=== PATIENT | female | born 1975 | race Two or more races ===

== ENCOUNTER 2018-04-21 17:36 | Emergency (ER) | payer SELFPAY ==
--- NOTE | 2018-04-21 19:03 | RADIOLOGY REPORT (SQ) ---
EXAM DESCRIPTION: FINGER LEFT COMPLETED DATE/TIME: 04/21/2018 6:55 pm REASON FOR STUDY: left thumb pain, bruising COMPARISON: None. NUMBER OF VIEWS: Three views. TECHNIQUE: AP, lateral, and oblique images acquired of the left thumb. LIMITATIONS: None. FINDINGS: MINERALIZATION: Normal. BONES: No acute fracture or dislocation. No worrisome bone lesions. SOFT TISSUES: No soft tissue swelling. No foreign body. OTHER: No other significant finding. IMPRESSION: NO RADIOGRAPHIC EVIDENCE OF ACUTE INJURY. COMMENT: SITE OF TRAUMA/COMPLAINT MARKED/STAMP COMPLETED: No TECHNICAL DOCUMENTATION: JOB ID: [id number] [employer]- All Rights Reserved Reading location - IP/workstation name: [email or web address]
--- NOTE | 2018-04-21 19:33 | ER Document Report ---
HPI - HPI Patient complains to provider of: Bone pain, finger swelling Onset/Duration: Persistent Quality of pain: Achy Pain Level: 4 Context: Patient presents complaining of a 15 day history of generalized bone pain throughout her body. Patient has had some episodes of hot and cold chills. Patient denies any nausea or vomiting. Patient denies any cough. Patient noticed her thumb was swelling today and she had some numbness in the thumb. Patient with a bruise on the palmar surface of her thumb which she does not know how it occurred. Patient states she has had body pain symptoms in the past when her vitamin D level was low. Patient has been taking multivitamins. Associated Symptoms: Chills, Other - Left thumb swelling. denies: Chest pain, Nonproductive cough, Productive cough Exacerbated by: Denies Relieved by: Denies Similar symptoms previously: Yes Recently seen / treated by doctor: No - ROS ROS below otherwise negative: Yes Systems Reviewed and Negative: Yes All other systems reviewed and negative - CONSTITUTIONAL Constitutional: REPORTS: Chills. DENIES: Fever - EENT EENT: DENIES: Sore Throat, Ear Pain, Eye problems - NEURO Neurology: REPORTS: Dizzinesss / Vertigo. DENIES: Headache, Weakness, Vision blurred - CARDIOVASCULAR Cardiovascular: DENIES: Chest pain - RESPIRATORY Respiratory: DENIES: Trouble Breathing, Coughing - GASTROINTESTINAL Gastrointestinal: DENIES: Abdominal Pain, Patient vomiting, Black / Bloody Stools - URINARY Urinary: DENIES: Dysuria, Urgency, Frequency - REPRODUCTIVE Reproductive: DENIES: :, Postmenopausal - MUSCULOSKELETAL Musculoskeletal: REPORTS: Extremity pain - Generalized body pain - DERM Skin Color: Ecchymosis Skin Problems: None <SUMMER MALDONADO - Last Filed: 04/21/18 21:08> Past Medical History - General Information source: Patient - Social History Smoking Status: Never Smoker Chew tobacco use (# tins/day): No Frequency of alcohol use: None Drug Abuse: None Occupation: None Lives with: Family Family History: Reviewed & Not Pertinent Patient has suicidal ideation: No Patient has homicidal ideation: No - Medical History Medical History: Negative Renal/ Medical History: Denies: Hx Peritoneal Dialysis Past Surgical History: Reports: Hx Hysterectomy, Hx Tubal Ligation <SUMMER MALDONADO - Last Filed: 04/21/18 21:08> Vertical Provider Document - CONSTITUTIONAL Agree With Documented VS: Yes Exam Limitations: No Limitations General Appearance: WD/WN, No Apparent Distress - INFECTION CONTROL TRAVEL OUTSIDE OF THE [place] IN LAST 30 DAYS: No - HEENT HEENT: Atraumatic, Normal ENT Exam, Normocephalic - NECK Neck: Normal Inspection, Supple - RESPIRATORY Respiratory: Breath Sounds Normal, No Respiratory Distress - CARDIOVASCULAR Cardiovascular: Regular Rate, Regular Rhythm Pulses: Normal: Radial - BACK Back: Normal Inspection - MUSCULOSKELETAL/EXTREMETIES Musculoskeletal/Extremeties: MAEW, FROM, Tender - Mild tenderness to left thumb involving DIP joint, patient with small area of ecchymosis to palmar surface overlying DIP joint of left thumb., Eccymosis - NEURO Level of Consciousness: Awake, Alert, Appropriate Motor/Sensory: No Motor Deficit - DERM Integumentary: Warm, Dry <SUMMER MALDONADO - Last Filed: 04/21/18 21:08> Course - Re-evaluation Re-evalutation: 04/21/18 20:[address] Davila regarding patient presentation and diagnostic evaluation. Recommends adding on additional labs, does not advise transfusing patient at this time. Recommends likely admission for further evaluation of anemia as well as to trend her blood counts to be sure that she is not actively bleeding at this time. 04/21/18 20:59 Upon further questioning, patient does acknowledge that she has heavy menstrual cycles in which she bleeds for about 12 days and passes clots each month. Patient states she has been having heavy menstrual bleeding for the past 3 years. Patient denies any chest pain or shortness of breath. Patient does have intermittent episodes of dizziness. 04/21/18 21:08 Bedside report and handoff given to Israel HAYNES - Vital Signs Vital signs: Temp Pulse Resp BP Pulse Ox 98.2 F 88 16 129/75 H 98 04/21/18 17:48 04/21/18 17:48 04/21/18 17:48 04/21/18 17:48 04/21/18 17:48 - Laboratory Result Diagrams: 04/21/18 19:20 04/21/18 19:20 <SUMMER MALDONADO - Last Filed: 04/21/18 21:08> - Re-evaluation Re-evalutation: Transvaginal ultrasound reveals a 4.4 cm heterogeneous mass in the fundus of the uterus, likely a fibroid according to the ultrasound report. Patient is not actively bleeding. Orthostatic vital signs are within normal limits. I discussed this patient's case with Dr. Menendez who agrees that the patient is okay for discharge this time with close follow-up with [employer]. Will place patient on ferrous sulfate 325 mg 3 times daily. Patient given strict ED return precautions. - Vital Signs Vital signs: Temp Pulse Resp BP Pulse Ox 99.0 F 79 16 115/72 100 04/21/18 22:23 04/21/18 22:28 04/21/18 22:23 04/21/18 22:28 04/21/18 22:23 - Laboratory Result Diagrams: 04/21/18 19:20 04/21/18 19:20 Laboratory results interpreted by me: 04/21/18 19:20 Hgb 7.8 L Hct 25.7 L MCV 61 L MCH 18.6 L MCHC 30.3 L RDW 19.6 H <ISRAEL ZHANG - Last Filed: 04/22/18 04:54> Discharge <SUMMER MALDONADO - Last Filed: 04/21/18 21:08> <ISRAEL ZHANG - Last Filed: 04/22/18 04:54> - Discharge Clinical Impression: Anemia Qualifiers: Anemia type: unspecified type Qualified Code(s): D64.9 - Anemia, unspecified Condition: Stable Disposition: HOME, SELF-CARE Additional Instructions: Anemia You have been found to have a significant anemia (a lower than normal amount of red blood cells). Anemia can be due to iron deficiency, vitamin deficiency, abnormal bleeding, or internal diseases. Usually, further tests are necessary to find the exact cause of the anemia. The most common cause of anemia is iron deficiency, often brought on by blood loss. This can be treated with iron supplements. If this appears to be the most likely cause, iron tablets may be prescribed even before all tests are complete. Contact the doctor at once if you note black or tarry-looking stools, bloody vomiting, shortness of breath, chest pain, or faintness. Please take the iron as prescribed. You need to follow-up with a cable layer call Tuesday morning for an appointment. I am enclosing a copy of your labs as well as your ultrasound report, the ultrasound report shows a uterine mass which needs further evaluation as it could be a benign fibroid or could be cancerous. Please take these to the cable layer with you. Return to the emergency department if you develop worsening symptoms, you start bleeding vaginally soaking through more than 1 pad per hour, you pass out or any other symptom that is concerning to you. Prescriptions: Ferrous Sulfate 325 mg PO TID #60 tablet [facility] [NO LOCAL MD] - Follow up as needed [facility] [Provider Group] - Follow up as needed BRENDA ATKINSON MD [EMERITUS] - Follow up as needed KAELYN BULL MD [EMERITUS] - Follow up as needed
[2018-04-21 19:46] LABS: ABSOLUTE BASOPHILS # (AUTO) 0.1 10^3/uL (0.0-0.2); ABSOLUTE EOSINOPHILS # (AUTO) 0.1 10^3/uL (0.0-0.6); ABSOLUTE LYMPHOCYTES (AUTO) 1.9 10^3/uL (0.5-4.7); ABSOLUTE MONOCYTES (AUTO) 0.6 10^3/uL (0.1-1.4); ABSOLUTE NEUT (AUTO) 4.7 10^3/uL (1.7-8.2); BASOPHILS % (AUTO) 0.8 % (0-2); EOSINOPHILS % (AUTO) 1.9 % (0-6); HEMATOCRIT 25.7 % (36.0-47.0); LYMPHOCYTES % (AUTO) 26.1 % (13-45); MEAN CORPUSCULAR HEMOGLOBIN 18.6 pg (27.0-33.4); MEAN CORPUSCULAR HGB CONC 30.3 g/dL (32.0-36.0); MEAN CORPUSCULAR VOLUME 61 fl (80-97); MONOCYTES % (AUTO) 7.9 % (3-13); PLATELET COUNT 182 10^3/uL (150-450); RED CELL DISTRIBUTION WIDTH 19.6 % (11.5-14.0); SEGMENTED NEUTROPHILS % (AUTO) 63.3 % (42-78); TOTAL CELLS COUNTED % (AUTO) 100 %; WHITE BLOOD COUNT 7.4 10^3/uL (4.0-10.5)
[2018-04-21 20:06] LABS: ANION GAP 13 (5-19); ANISOCYTOSIS 2+; BLOOD UREA NITROGEN 16 mg/dL (7-20); CARBON DIOXIDE 23 mmol/L (22-30); CHLORIDE 104 mmol/L (98-107); GLUCOSE 89 mg/dL (75-110); HYPOCHROMASIA 2+; OVALOCYTES SLIGHT; PLATELET COMMENT ADEQUATE; POIKILOCYTOSIS SLIGHT; POTASSIUM 4.8 mmol/L (3.6-5.0); SODIUM 139.6 mmol/L (137-145); TOXIC GRANULATION SLIGHT
[2018-04-21 20:09] LABS: HEMOGLOBIN 7.8 g/dL (12.0-15.5)
[2018-04-21 20:42] LABS: PROTHROMBIN TIME 13.7 SEC (11.4-15.4)
[2018-04-21 20:43] LABS: PARTIAL THROMBOPLASTIN TIME 30.3 SEC (23.5-35.8)
[2018-04-21 21:01] LABS: ALANINE AMINOTRANSFERASE 23 U/L (9-52); ALKALINE PHOSPHATASE 68 U/L (38-126); ASPARTATE AMINO TRANSFERASE 18 U/L (14-36); BILIRUBIN,DIRECT 0.2 mg/dL (0.0-0.4); BILIRUBIN,TOTAL 0.3 mg/dL (0.2-1.3); TOTAL PROTEIN 6.8 g/dL (6.3-8.2)
--- NOTE | 2018-04-21 22:04 | RADIOLOGY REPORT (SQ) ---
EXAM DESCRIPTION: U/S NON OB PEL TV W/DOPPLER COMPLETED DATE/TIME: 04/21/2018 9:54 pm REASON FOR STUDY: anemia, hx heavy menses COMPARISON: None. TECHNIQUE: Dynamic and static grayscale images acquired of the pelvis via transvaginal approach and recorded on PACS. Additional selected color Doppler and spectral images recorded. LIMITATIONS: None. FINDINGS: UTERUS: Heterogenous mass in the fundus measuring 3.7 x 4.3 x 4.4 cm. ENDOMETRIAL STRIPE: No focal or generalized thickening. No masses. CERVIX: No nabothian cysts. RIGHT OVARY AND DOPPLER: Ovary not visualized. LEFT OVARY AND DOPPLER: Ovary not visualized. FREE FLUID: Small amount of free fluid in the posterior cul-de-sac. OTHER: No other significant finding. MEASUREMENTS: UTERUS: 6.2 x 7.4 x 11 cm. ENDOMETRIAL STRIPE: 8 mm. RIGHT OVARY: Not visualized. LEFT OVARY: Not visualized. IMPRESSION: 4.4 CM HETEROGENOUS MASS IN THE FUNDUS OF THE UTERUS, LIKELY A FIBROID. OVARIES NOT VIS UALIZED. TECHNICAL DOCUMENTATION: JOB ID: [id number]- All Rights Reserved Rev-01/13 Reading location - IP/workstation name: [email or web address]
[2018-04-21 23:37] VITALS: BP 121/70
[2018-04-24 14:20] LABS: PATH REVIEW PATHOLOGIST REVIEWED
== END 2018-04-21 23:37 | disposition home or self-care (01) ==
LOC: ER 17:36
DX: D64.9 Anemia, unspecified (principal); S60.012A Contusion of left thumb without damage to nail, initial encounter; X58.XXXA Exposure to other specified factors, initial encounter; M89.8X0 Other specified disorders of bone, multiple sites; N85.9 Noninflammatory disorder of uterus, unspecified; R68.83 Chills (without fever); R20.0 Anesthesia of skin; R42 Dizziness and giddiness
CPT/HCPCS: 36415; 76830; 80048; 80076; 82272; 84703; 85025; 85610; 85730; 86850; 86900; 86901; 93976; 99284

== ENCOUNTER 2018-06-28 13:02 | Emergency (ER) | payer OTHER ==
--- NOTE | 2018-06-28 13:54 | ER Document Report ---
ED Medical Screen (RME) - General Chief Complaint: Vaginal Bleeding Stated Complaint: VAGINAL BLEEDING Time Seen by Provider: 06/28/18 13:49 Notes: 43 years old female with chronic history of vaginal bleeding has been bleeding for about 11 days now and feeling dizzy and lightheaded therefore present to the ED. No abdominal pain. Conjunctivae appears normal TRAVEL OUTSIDE OF THE [place]. IN LAST 30 DAYS: No - Related Data Allergies/Adverse Reactions: aspirin Allergy (Verified 06/28/18 13:03) Penicillins Allergy (Verified 06/28/18 13:03) Past Medical History Renal/ Medical History: Denies: Hx Peritoneal Dialysis Past Surgical History: Reports: Hx Hysterectomy, Hx Tubal Ligation Physical Exam - Vital signs Vitals: Temp Pulse Resp BP Pulse Ox 98.4 F 68 16 125/77 100 06/28/18 13:30 06/28/18 13:30 06/28/18 13:30 06/28/18 13:30 06/28/18 13:30 Course - Vital Signs Vital signs: Temp Pulse Resp BP Pulse Ox 98.4 F 68 16 125/77 100 06/28/18 13:30 06/28/18 13:30 06/28/18 13:30 06/28/18 13:30 06/28/18 13:30
--- NOTE | 2018-06-28 14:36 | ER Document Report ---
ED GI/ - General Chief Complaint: Vaginal Bleeding Stated Complaint: VAGINAL BLEEDING Time Seen by Provider: 06/28/18 13:49 Mode of Arrival: Ambulatory Information source: Patient Notes: 43-year-old female presented to ED for complaint of heavy vaginal bleeding during her period for the last several months. She states this month her period is been going on for 10 days and is getting progressively heavier and she is having cramps in the pelvic area. She states she has been feeling dizzy and lightheaded today so she came to the emergency room. Patient is alert and oriented respirations regular and unlabored speaking in full sentences. Her daughter is present as the patient does speak Romansh. TRAVEL OUTSIDE OF THE [place] IN LAST 30 DAYS: No - HPI Patient complains to provider of: Pelvic pain, Vaginal bleeding, Other - Back pain Onset: Other - 10 days Timing/Duration: Intermittent - States her periods have been very heavy for the last several months getting progressively worse Quality of pain: Cramping Severity at maximum: Moderate Severity in ED: Moderate Pain Level: 3 Location: Low back, Pelvis Vaginal bleeding (Compared to normal period): Heavier Associated symptoms: Dizzy, Lightheaded Exacerbated by: Denies Relieved by: Denies Similar symptoms previously: Yes Recently seen / treated by doctor: No - Related Data Allergies/Adverse Reactions: aspirin Allergy (Verified 06/28/18 13:03) Penicillins Allergy (Verified 06/28/18 13:03) Past Medical History - General Information source: Patient - Social History Smoking Status: Never Smoker Cigarette use (# per day): No Chew tobacco use (# tins/day): No Smoking Education Provided: No Frequency of alcohol use: None Drug Abuse: None Lives with: Family Family History: Reviewed & Not Pertinent Patient has suicidal ideation: No Patient has homicidal ideation: No - Medical History Medical History: Other - Anemia - Past Medical History Cardiac Medical History: Reports: None Pulmonary Medical History: Reports: None EENT Medical History: Reports: None Endocrine Medical History: Reports: None Renal/ Medical History: Reports: None Malignancy Medical History: Reports: None GI Medical History: Reports: None Musculoskeletal Medical History: Reports None Skin Medical History: Reports None Psychiatric Medical History: Reports: None Traumatic Medical History: Reports: None Infectious Medical History: Reports: None Past Surgical History: Reports: Hx Tubal Ligation Review of Systems - Review of Systems Constitutional: No symptoms reported EENT: No symptoms reported Cardiovascular: No symptoms reported, Dizziness, Lightheaded Respiratory: No symptoms reported Gastrointestinal: No symptoms reported Genitourinary: No symptoms reported Female Genitourinary: Heavy/abnormal periods - Pelvic pain, Vaginal bleeding, Other Musculoskeletal: No symptoms reported Skin: No symptoms reported Hematologic/Lymphatic: No symptoms reported Neurological/Psychological: No symptoms reported -: Yes All other systems reviewed and negative Physical Exam - Vital signs Vitals: Temp Pulse Resp BP Pulse Ox 98.4 F 68 16 125/77 100 06/28/18 13:30 06/28/18 13:30 06/28/18 13:30 06/28/18 13:30 06/28/18 13:30 Interpretation: Normal - General General appearance: Appears well, Alert - HEENT Head: Normocephalic, Atraumatic Eyes: Normal Pupils: PERRL - Respiratory Respiratory status: No respiratory distress Chest status: Nontender Breath sounds: Normal Chest palpation: Normal - Cardiovascular Rhythm: Regular Heart sounds: Normal auscultation Murmur: No - Abdominal Inspection: Normal Distension: No distension Bowel sounds: Normal Tenderness: Nontender Organomegaly: No organomegaly - Genitourinary External exam: Normal Vaginal bleeding: Moderate Bimanuel exam: Normal - Back Back: Normal, Nontender - Extremities General upper extremity: Normal inspection, Nontender, Normal color, Normal ROM , Normal temperature General lower extremity: Normal inspection, Nontender, Normal color, Normal ROM , Normal temperature, Normal weight bearing. No: Mitesh's sign - Neurological Neuro grossly intact: Yes Cognition: Normal Orientation: AAOx4 [place] Coma Scale Eye Opening: Spontaneous Meghana Coma Scale Verbal: Oriented [place] Coma Scale Motor: Obeys Commands [place] Coma Scale Total: 15 Speech: Normal Motor strength normal: LUE, RUE, LLE, RLE Sensory: Normal - Psychological Associated symptoms: Normal affect, Normal mood - Skin Skin Temperature: Warm Skin Moisture: Dry Skin Color: Normal Course - Vital Signs Vital signs: Temp Pulse Resp BP Pulse Ox 97.8 F 63 16 123/76 100 06/28/18 17:55 06/28/18 17:55 06/28/18 17:55 06/28/18 17:55 06/28/18 17:55 - Laboratory Result Diagrams: 06/28/18 15:00 Laboratory results interpreted by me: 06/28/18 15:00 RDW 21.4 H - Diagnostic Test Radiology reviewed: Image reviewed, Reports reviewed - Consults Dr Meyer Time consulted: 16:58 Reason for consultation: 06/28/18 20:31 Normal vaginal bleeding Consulted provider: follow-up in office Discharge - Discharge Clinical Impression: Painful heavy vaginal bleeding Uterine fibroid Qualifiers: Uterine leiomyoma location: unspecified location Qualified Code(s): D25.9 - Leiomyoma of uterus, unspecified Ovarian cyst Qualifiers: Laterality: left Qualified Code(s): N83.202 - Unspecified ovarian cyst, left side Condition: Stable Disposition: HOME, SELF-CARE Additional Instructions: VAGINAL BLEEDING: You are having an episode of abnormal bleeding. Causes of abnormal vaginal bleeding can include miscarriage or tubal , tumors such as cancer or benign fibroids, medication effects, or hormone imbalance. Testing can eliminate unsuspected , tumors, or infection as a cause. "Dysfunctional uterine bleeding" is due to hormone imbalance, and is especially common at times when the normal cycle is disturbed -- whether by recent , use of control pills or hormones, or impending menopause. If the bleeding is innocent, most commonly a short course of hormones is given to restore the uterus to normal. Sometimes, the normal menstrual cycle corrects itself naturally. Sometimes , brief hormone therapy, or even a D&C is required. Your physician will advise you. Treatment for anemia may be required if bleeding is severe. You should rest and avoid intercourse until the bleeding is controlled. Call the doctor or return for re-examination if you feel faint, have increasing pain, or have a major increase in the amount of bleeding. FIBROIDS: Fibroids are benign growths or tumors in the uterus. They can cause enlargement of the uterus, irregular bleeding, severe bleeding with periods, and abdominal pain. Anemia may result if periods are heavy. Fibroids tend to grow until menopause, then slowly shrink. If fibroids cause severe symptoms, they can be treated surgically. Call or return if vaginal bleeding or pain becomes severe. Ovarian Cyst Your examination shows the presence of an ovarian cyst. This is a ball of fluid attached to the ovary. Ovarian cysts in women of child-bearing age are usually innocent. However, the cyst may cause pain when it grows or bursts. An innocent ovarian cyst will usually go away by itself. When the cyst becomes painful, you should rest. Pain medication may be required. Some women find a hot water bottle soothing. The pain usually resolves within one or two days. After menopause, an ovarian cyst may mean a tumor, and requires more aggressive evaluation -- usually surgery is recommended to remove or biopsy the cyst. A very large cyst requires evaluation at any age. Most cysts (even the innocent ones) require follow-up examination. Call the doctor or return at any time if the pain increases significantly, if you become faint, or if you experience vaginal bleeding. PROVERA: Provera (medroxyprogesterone) is usually used to stop excessive uterine bleeding or to regulate the periods. Provera is a form of progesterone, the hormone that stimulates the uterus lining to mature during the second half of your cycle. High doses of Provera can usually stop uterine bleeding. It's most useful for the abnormal bleeding that occurs when periods are irregular, such as around menopause. Provera usually isn't helpful for bleeding that occurs after Depo-Provera or Norplant. There is often another heavy "period" when you finish the Provera. Afterwards, the periods usually return to normal within a month or two. Contact your doctor if bleeding becomes more severe, or if you develop abdominal pain, lightheadedness, fever, or other new symptoms. You have been sent home with a prescription for norethindrone for and Tuesday and you are to follow-up with Dr. meyer on Tuesday for your heavy painful vaginal bleeding. This medication may help to stop your bleeding but you still need to follow-up to have a biopsy of your uterine fibroid. FOLLOW-UP CARE: If you have been referred to a physician for follow-up care, call the physician s office for an appointment as you were instructed or within the next two days. If you experience worsening or a significant change in your symptoms (very heavy bleeding with large clots of blood, passage of tissue, more severe abdominal / pelvic pain or cramping, feeling faint or severe weakness, fever, etc.), notify the physician immediately or return to the Emergency Department at any time for re-evaluation. OBSTETRIC-GYNECOLOGIC (OB-NURSE GYNECOLOGY) PHYSICIANS IN [place]: Please call the OB/ NURSE GYNECOLOGY doctor tomorrow morning and schedule an appointment for Tuesday. I spoke with Dr. meyer today and she states that you need to be seen on Tuesday. [facility] [address] [place] [address] [phone] Prescriptions: Norethindrone Acetate [Aygestin 5 mg Tablet] 15 mg PO DAILY #9 tab Referrals: KRYSTAL COREAS DO [ACTIVE STAFF] - 06/30/18
[2018-06-28 15:32] LABS: ABSOLUTE BASOPHILS # (AUTO) 0.1 10^3/uL (0.0-0.2); ABSOLUTE EOSINOPHILS # (AUTO) 0.2 10^3/uL (0.0-0.6); ABSOLUTE MONOCYTES (AUTO) 0.4 10^3/uL (0.1-1.4); ABSOLUTE NEUT (AUTO) 3.9 10^3/uL (1.7-8.2); BASOPHILS % (AUTO) 1.1 % (0-2); EOSINOPHILS % (AUTO) 2.9 % (0-6); HEMATOCRIT 36.8 % (36.0-47.0); HEMOGLOBIN 12.6 g/dL (12.0-15.5); LYMPHOCYTES % (AUTO) 30.3 % (13-45); MEAN CORPUSCULAR HEMOGLOBIN 29.2 pg (27.0-33.4); MEAN CORPUSCULAR HGB CONC 34.2 g/dL (32.0-36.0); MEAN CORPUSCULAR VOLUME 85 fl (80-97); PLATELET COUNT 185 10^3/uL (150-450); RED BLOOD COUNT 4.32 10^6/uL (3.72-5.28); RED CELL DISTRIBUTION WIDTH 21.4 % (11.5-14.0); SEGMENTED NEUTROPHILS % (AUTO) 59.7 % (42-78); TOTAL CELLS COUNTED % (AUTO) 100 %; WHITE BLOOD COUNT 6.6 10^3/uL (4.0-10.5)
[2018-06-28 15:49] LABS: APPEARANCE,URINE CLEAR; BILIRUBIN,URINE NEGATIVE (NEGATIVE); COLOR,URINE STRAW; GLUCOSE, URINE NEGATIVE (NEGATIVE); KETONES,URINE NEGATIVE (NEGATIVE); LEUKOCYTE ESTERASE,URINE NEGATIVE (NEGATIVE); NITRITE,URINE NEGATIVE (NEGATIVE); PROTEIN,URINE NEGATIVE (NEGATIVE); URINE SPECIFIC GRAVITY 1.016; UROBILINOGEN,URINE NEGATIVE mg/dL (<2.0)
[2018-06-28 16:13] LABS: ANISOCYTOSIS 3+; OVALOCYTES SLIGHT; PLATELET COMMENT ADEQUATE; POIKILOCYTOSIS SLIGHT
--- NOTE | 2018-06-28 16:38 | RADIOLOGY REPORT (SQ) ---
EXAM DESCRIPTION: U/S NON-OB PELVIS TV W/O DOP COMPLETED DATE/TIME: 06/28/2018 4:27 pm REASON FOR STUDY: excessive bleeding pelvic cramping COMPARISON: 04/21/2018 TECHNIQUE: Dynamic and static grayscale images acquired of the pelvis via transvaginal approach and recorded on PACS. Additional selected color Doppler and spectral images recorded. LIMITATIONS: None. FINDINGS: UTERUS: 4 cm fibroid in uterus unchanged. ENDOMETRIAL STRIPE: No focal or generalized thickening. No masses. CERVIX: No nabothian cysts. RIGHT OVARY AND DOPPLER: Normal size. No worrisome masses. Normal arterial vascular flow without evid ence for torsion. LEFT OVARY AND DOPPLER: 3.5 cm simple cyst. Normal vascular flow. FREE FLUID: None noted. OTHER: No other significant finding. MEASUREMENTS: UTERUS: 9.5 x 6 x 5.9 cm ENDOMETRIAL STRIPE: 3.7 mm RIGHT OVARY: 2.7 x 1.2 x 1.6 cm LEFT OVARY: 4.1 x 4.1 x 3 cm IMPRESSION: Stable uterine fibroid. 3.5 cm left ovarian cysts. COMMENT: Followup of asymptomatic benign ovarian cysts detected by ultrasound in PREMENOPAUSAL aleisha ents Simple cyst: *? 5 cm: no followup *Note: If cyst is clinically symptomatic or otherwise concerning, other followup may be warranted. Based on recommendations of the Society for Radiologists in Ultrasound Consensus Conference Statement 2010 on management of asymptomatic ovarian and other adnexal cysts imaged at ultrasound. TECHNICAL DOCUMENTATION: JOB ID: [id number] [employer]- All Rights Reserved Rev-01/13 Reading location - IP/workstation name: [email or web address]
[2018-06-28] MEDS ORDERED: MEDROXYPROGESTERONE ACET 10 MG TABLET PO ONE (17:12)
[2018-06-28 17:56] VITALS: BP 123/76
== END 2018-06-28 17:57 | disposition home or self-care (01) ==
LOC: ER 13:02
DX: D25.9 Leiomyoma of uterus, unspecified (principal); N83.202 Unspecified ovarian cyst, left side; N93.9 Abnormal uterine and vaginal bleeding, unspecified; R42 Dizziness and giddiness; M54.5 Low back pain; Z88.6 Allergy status to analgesic agent; Z88.0 Allergy status to penicillin
CPT/HCPCS: 99284; 36415; 84702; 85025; 81001; 76830; J3490

== ENCOUNTER 2018-12-10 23:52 | Emergency (ER) | payer OTHER ==
[2018-12-10 23:59] VITALS: BP 138/81
--- NOTE | 2018-12-11 00:26 | ER Document Report ---
Addendum entered and electronically signed by LETICIA SU PA-C 12/11/18 00:33: Discharge - Discharge Clinical Impression: Paresthesias, Neuropathy Condition: Good Disposition: ADMITTED OBSERVATION Instructions: Neuropathy ([facility]) Additional Instructions: PLEASE SEE YOUR DOCTOR AT [facility] IF SYMPTOMS DO NOT RESOLVE. Prescriptions: Gabapentin [Neurontin 100 mg Capsule] 100 mg PO TID #30 capsule Referrals: [facility] [Provider Group] - Follow up as needed Print Language: Greenlandic Original Note: ED General - General Chief Complaint: Arm Pain Stated Complaint: ARM PAIN Time Seen by Provider: 12/11/18 00:20 Mode of Arrival: Ambulatory Information source: Patient TRAVEL OUTSIDE OF THE [place] IN LAST 30 DAYS: No - HPI Patient complains to provider of: Paresthesias of the right upper extremity Onset: Other - today Onset/Duration: Sudden Quality of pain: Burning Severity: Mild Associated symptoms: None Exacerbated by: Denies Relieved by: Denies Similar symptoms previously: No Recently seen / treated by doctor: No Notes: 43-year-old female coming in today with chief complaint of right arm feels like there is some burning sensation coming from her fingers upper arm. Also has a feeling like there is some swelling even when there is not. She does not have any weakness in her arm. She does not have any other symptoms. She denies having any injuries. - Related Data Allergies/Adverse Reactions: aspirin Allergy (Verified 06/28/18 13:03) Penicillins Allergy (Verified 06/28/18 13:03) Past Medical History - General Information source: Patient - Social History Smoking Status: Unknown if Ever Smoked Family History: Reviewed & Not Pertinent Patient has suicidal ideation: No Patient has homicidal ideation: No Renal/ Medical History: Denies: Hx Peritoneal Dialysis Past Surgical History: Reports: Hx Hysterectomy, Hx Tubal Ligation Review of Systems - Review of Systems Notes: Constitutional: No fevers. No chills. EENT: No eye redness. No eye pain. No ear pain. No sore throat. Cardiovascular: No chest pain. No palpitations. Respiratory: No cough. No shortness of breath. No respiratory distress. Gastrointestinal: No abdominal pain. No nausea, vomiting, or diarrhea. Genitourinary: Atraumatic. No lesions. No pain. No discharge. Musculoskeletal: Pins and needles sensation in the right upper extremity, slight burning sensation in the arm Skin: No rash or lesions. Lymphatic: No swollen lymph nodes. Neurologic: No headache. No syncope. Psychiatric: No suicidal or homicidal ideation. Physical Exam - Vital signs Vitals: Temp Pulse Resp BP Pulse Ox 98.8 F 85 18 138/81 H 100 12/10/18 23:57 12/10/18 23:57 12/10/18 23:57 12/10/18 23:57 12/10/18 23:57 - Notes Notes: General: Well-developed, well-nourished. In no acute distress. Non-toxic appearing. Cardiac: Well-perfused. Regular rate and rhythm. No murmurs, rubs, or gallops. Pulmonary: No respiratory distress. No cyanosis. Bilateral lung fiels are clear to auscultation. Abdominal: Non-distended. Non-rigid. Bowels sounds are present in all four quadrants. No guarding or rebound. HEENT: Head is atraumatic. Conjunctivae not reddened. No tearing. PERRL. EOMI. Orbits atraumatic. No periorbital swelling or erythema. Oropharynx is without erythema, swelling, or exudates. Neck: Supple. No adenopathy. No meningismus. Dermatologic: Warm with good turgor. No rash. Atraumatic. Chest: Atraumatic. No chest wall tenderness to palpation. Musculoskeletal: The right upper extremity appears normal. There is no redness or swelling. Pulses intact. Capillary refill less than 2 seconds. Full range of motion at all joints. No rash. Distal neurovascular exam is intact. Genitourinary: Examination deferred Neurologic: No gross neurologic deficits. Psychiatric: Normal mood. Course - Vital Signs Vital signs: Temp Pulse Resp BP Pulse Ox 98.8 F 85 18 138/81 H 100 12/10/18 23:57 12/10/18 23:57 12/10/18 23:57 12/10/18 23:57 12/10/18 23:57 Discharge - Discharge Clinical Impression: Paresthesias, Neuropathy Condition: Good Disposition: ADMITTED OBSERVATION Instructions: Neuropathy ([facility]) Additional Instructions: PLEASE SEE YOUR DOCTOR AT [facility] IF SYMPTOMS DO NOT RESOLVE. Prescriptions: Gabapentin [Neurontin 100 mg Capsule] 100 mg PO TID #30 capsule Referrals: [facility] [Provider Group] - Follow up as needed
== END 2018-12-11 00:38 | disposition home or self-care (01) ==
LOC: ER 23:52
DX: G62.9 Polyneuropathy, unspecified (principal); R20.2 Paresthesia of skin; R20.8 Other disturbances of skin sensation; Z88.6 Allergy status to analgesic agent; Z88.0 Allergy status to penicillin
CPT/HCPCS: 99284

== ENCOUNTER 2018-12-14 13:23 | Emergency (ER) | payer OTHER ==
[2018-12-14] MEDS ORDERED: KETOROLAC TROMETHAMINE 60 MG/2 ML SDV IM ONE (14:44)
[2018-12-14] MEDS ORDERED: DEXAMETHASONE SOD PHOS INJ 10 MG/1 ML VIAL IM ONE (14:44)
--- NOTE | 2018-12-14 15:32 | RADIOLOGY REPORT (SQ) ---
EXAM DESCRIPTION: L SPINE WHOLE COMPLETED DATE/TIME: 12/14/2018 3:25 pm REASON FOR STUDY: low back pain COMPARISON: None. NUMBER OF VIEWS: Five views including obliques. TECHNIQUE: AP, lateral, oblique, and sacral radiographic images acquired of the lumbar spine. LIMITATIONS: None. FINDINGS: MINERALIZATION: Normal. SEGMENTATION: Normal. No transitional anatomy. ALIGNMENT: Normal. VERTEBRAE: Maintained height. No fracture or worrisome bone lesion. DISCS: Preserved height. No significant osteophytes or end plate irregularity. POSTERIOR ELEMENTS: Mild hypertrophic facet changes at L5-S1. HARDWARE: None in the spine. PARASPINAL SOFT TISSUES: Normal. PELVIS: Intact as visualized. No fractures or worrisome bone lesions. SI joints intact. OTHER: No other significant finding. IMPRESSION: Mild facet arthropathy. TECHNICAL DOCUMENTATION: JOB ID: [id number] [employer]- All Rights Reserved Reading location - IP/workstation name: [email or web address]
--- NOTE | 2018-12-14 22:38 | ER Document Report ---
ED General - General Chief Complaint: Low Back Pain Stated Complaint: BACK PAIN Time Seen by Provider: 12/14/18 14:43 Notes: Patient is a pleasant 43-year-old female. She is Cameroonian-speaking. Her daughter is at bedside and is full in both Cameroonian and Croatian. Her daughter said that she would like to translate for her mother. I informed her daughter to translate the questions I asked exactly how I asked him to translate back to me exactly what her mother says. Daughter agreed to this. Patient's 43-year-old female who was seen here a few days ago. At that time she had her younger son to translate who was not very fluent in Cam[place]onian and therefore there was some confusion as the patient was thought to be seen for arm pain. She was placed on gabapentin. She still has pain but the pain is actually in her lower back. She has pain that goes from her lower back and radiates down her legs. No numbness into her legs or feet. No weakness into her legs. No loss of bowel control. No urinary tension. She does have a previous history of similar back pains but this is more intense than she has had in the past. Pain has been ongoing for a few days now. TRAVEL OUTSIDE OF THE [place] IN LAST 30 DAYS: No - Related Data Allergies/Adverse Reactions: aspirin Allergy (Verified 12/14/18 13:25) Penicillins Allergy (Verified 12/14/18 13:25) Past Medical History - Social History Smoking Status: Never Smoker Frequency of alcohol use: None Drug Abuse: None Family History: Reviewed & Not Pertinent Patient has suicidal ideation: No Patient has homicidal ideation: No Renal/ Medical History: Denies: Hx Peritoneal Dialysis Past Surgical History: Reports: Hx Hysterectomy, Hx Tubal Ligation Review of Systems - Review of Systems Notes: My Normal Review Basic REVIEW OF SYSTEMS: CONSTITUTIONAL : Denies fever, chills, or sweats. Denies recent illness. GASTROINTESTINAL: Denies abdominal pain. Denies nausea, vomiting, or diarrhea. GENITOURINARY: Denies difficulty urinating, painful urination, burning, frequency, or blood in urine. MUSCULOSKELETAL: Low back pain NEUROLOGICAL: Denies sensory or motor loss. ALL OTHER SYSTEMS REVIEWED AND NEGATIVE. Physical Exam - Vital signs Vitals: Temp Pulse Resp BP Pulse Ox 98.4 F 68 16 131/67 H 100 12/14/18 13:45 12/14/18 13:45 12/14/18 13:45 12/14/18 13:45 12/14/18 13:45 - Notes Notes: General Appearance: Well nourished, alert, cooperative, no acute distress, mild obvious discomfort. Vitals: reviewed, See vital signs table. Abdomen: Normal BS, soft, No rigidity, No abdominal tenderness, No guarding, no rebound, no abdominal masses, no organomegaly Extremities: strength 5/5 in all extremities, good pulses in all extremities, no swelling or tenderness in the extremities, no edema. Back: Patient has some mild pain to palpation around the area of L4-L5 in her lower back. There is no redness or swelling to the area. No evidence of rash. Skin: warm, dry, appropriate color, no rash Neuro: speech clear, oriented x 3, normal affect, responds appropriately to questions. Patient has good plantar and dorsiflexion against resistance. Normal patellar reflexes bilaterally. Good distal sensation. Course - Re-evaluation Re-evalutation: 12/14/18 22:40 Patient has history of allergy to aspirin. When she takes aspirin she gets hives. She does sometimes take ibuprofen and does not have any allergy to this. She tolerated the Toradol helped here well without any reaction. I feel that Naprosyn is probably safe. - Vital Signs Vital signs: Temp Pulse Resp BP Pulse Ox 98.4 F 77 18 114/75 99 12/14/18 22:44 12/14/18 22:44 12/14/18 22:44 12/14/18 22:44 12/14/18 22:44 Discharge - Discharge Clinical Impression: Back pain Qualifiers: Back pain location: low back pain Chronicity: acute Back pain laterality: midline Sciatica presence: with sciatica Sciatica laterality: sciatica laterality unspecified Qualified Code(s): M54.40 - Lumbago with sciatica, unspecified side Condition: Good Disposition: HOME, SELF-CARE Additional Instructions: Please take the medications as prescribed. Please do not lift anything heavy over the next several days. Please still get up and walk around so that your back does not become stiff. Please follow-up with your doctor and discuss possible referral to physical therapy as this may help prevent re-exacerbations of your pain. Please take the naprosyn with food. Do not take other NSAID medicaitons such as Aspirin, Motrin, Ibuprofen, Aleve, or Advil when taking Naprosyn. It is okay to take Tylenol. Please return to the ER immediately if you develops loss of control of your bowel function, inability to urinate, or weakness or numbness into your legs. Prescriptions: Naproxen [Naprosyn 250 mg Tablet] 250 mg PO BID #20 tablet
[2018-12-14 22:45] VITALS: BP 114/75
--- NOTE | 2018-12-15 09:03 | ER Document Report ---
ED Medical Screen (RME) - General Chief Complaint: Low Back Pain Stated Complaint: BACK PAIN Time Seen by Provider: 12/14/18 14:43 Mode of Arrival: Ambulatory Information source: Patient Notes: This 43-year-old female was seen for low back pain radiating down her legs. She states that when she moves or sits or stands that the pain goes down both legs. She denies any signs or symptoms of cauda equina, she denies any loss of control of bowel bladder, saddle anesthesia, loss of control of lower extremities or loss of sensation to lower extremities. Patient is able to walk she is able to get up and down from the chair. She does speak [place] but is able to understand some of what I say. She is accompanied by her daughter who states that mother wants her to translate for her that she does not want to use a translation line. Daughter states that the past mother has been having more pain in her back and it radiates down her legs. She states she has not fallen has not injured herself. I did treat her with Toradol and Decadron IM and obtained a back x-ray. Patient was alert oriented able to walk with a even steady gait lungs are clear to auscultation. I have greeted and performed a rapid initial assessment of this patient. A comprehensive ED assessment and evaluation of the patient, analysis of test results and completion of medical decision making process will be conducted by an additional ED providers. TRAVEL OUTSIDE OF THE [place] IN LAST 30 DAYS: No - Related Data Allergies/Adverse Reactions: aspirin Allergy (Verified 12/14/18 13:25) Penicillins Allergy (Verified 12/14/18 13:25) Past Medical History - Social History Frequency of alcohol use: None Drug Abuse: None Renal/ Medical History: Denies: Hx Peritoneal Dialysis Past Surgical History: Reports: Hx Hysterectomy, Hx Tubal Ligation Physical Exam - Vital signs Vitals: Temp Pulse Resp BP Pulse Ox 98.4 F 68 16 131/67 H 100 12/14/18 13:45 12/14/18 13:45 12/14/18 13:45 12/14/18 13:45 12/14/18 13:45 Course - Vital Signs Vital signs: Temp Pulse Resp BP Pulse Ox 98.4 F 77 18 114/75 99 12/14/18 22:44 12/14/18 22:44 12/14/18 22:44 12/14/18 22:44 12/14/18 22:44 Doctor's Discharge - Discharge Clinical Impression: Back pain Qualifiers: Back pain location: low back pain Chronicity: acute Back pain laterality: midline Sciatica presence: with sciatica Sciatica laterality: sciatica laterality unspecified Qualified Code(s): M54.40 - Lumbago with sciatica, unspecified side Condition: Good Disposition: HOME, SELF-CARE Additional Instructions: Please take the medications as prescribed. Please do not lift anything heavy over the next several days. Please still get up and walk around so that your back does not become stiff. Please follow-up with your doctor and discuss possible referral to physical therapy as this may help prevent re-exacerbations of your pain. Please take the naprosyn with food. Do not take other NSAID medicaitons such as Aspirin, Motrin, Ibuprofen, Aleve, or Advil when taking Naprosyn. It is okay to take Tylenol. Please return to the ER immediately if you develops loss of control of your bowel function, inability to urinate, or weakness or numbness into your legs. Prescriptions: Naproxen [Naprosyn 250 mg Tablet] 250 mg PO BID #20 tablet
== END 2018-12-14 22:45 | disposition home or self-care (01) ==
LOC: ER 13:23
DX: M54.40 Lumbago with sciatica, unspecified side (principal); M79.605 Pain in left leg; M79.604 Pain in right leg
CPT/HCPCS: 99283; 96372; 72110; J1885; J1100